=== PATIENT | female | born 1950 ===

== ENCOUNTER 2018-09-25 05:11 | Emergency (ER) | payer OTHER ==
[~2018-09-25] VITALS: Ht 149.9 cm; Wt 62.1 kg
[~2018-09-25 05:11] MED LIST: ADVIL200 M1 PO; CRESTOR10 MG PO; HYZAAR 100-121 UDTAB PO; PROTONIX20 MG PO; TOPROL XL50 MG PO
== END 2018-09-25 08:23 | disposition home or self-care (01) ==
LOC: ER 05:11
DX: R00.2 Palpitations (principal)